=== PATIENT | female | born 1940 | race Caucasian/White ===

== ENCOUNTER 2021-08-03 19:16 | Emergency (ER) | payer OTHER, BC ==
[2021-08-03 19:25] VITALS: BP 160/75; PULSE 84; TEMP 97.8; BMI 21.6
[2021-08-03 20:35] LABS: ALBUMIN 3.7 g/dl (3.4-5.0); BILIRUBIN,TOTAL 0.4 mg/dl (0.2-1); CREATININE 0.7 mg/dl (0.55-1.3); TOT PROT 6.6 g/dl (6.4-8.2)
[2021-08-03 20:44] LABS: EPITHELIAL CELLS MODERATE /hpf
[2021-08-03 21:49] LABS: BASO % 0.7 % (0-2.0); EOS % 4.4 % (0-4.5); HEMATOCRIT 38.2 % (32.4-45.2); HEMOGLOBIN 12.9 GM/dL (10.7-15.3); LYMPH % 28.1 % (8-40); MCH 32.2 pg (25.7-33.7); MCHC 33.7 g/dl (32.0-36.0); MEAN CELL VOLUME 95.5 fl (80-96); MEAN PLT VOLUME 8.1 fl (7.5-11.1); MONO % 9.6 % (3.8-10.2); NEUT % 57.2 % (42.8-82.8); PLATELET COUNT 239 10^3/uL (134-434); WHITE BLOOD COUNT 5.4 K/mm3 (4.0-10.0)
== END 2021-08-03 21:21 | disposition left against medical advice (07) ==
LOC: FER 19:16
DX: R00.2 Palpitations (principal); R07.89 Other chest pain
CPT/HCPCS: 36415; 80053; 81003; 81015; 82550; 84484; 85025; 93005; 99284-25